=== PATIENT | female | born 1980 | race Caucasian/White ===

== ENCOUNTER 2018-05-20 14:45 | Emergency (ER) | payer OTHER ==
[~2018-05-20] VITALS: Ht 170.2 cm; Wt 61.2 kg
[2018-05-20 15:27] VITALS: BP 113/74
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
[2018-05-20] MEDS ORDERED: NEOMY/BACITR/POLYMYXIN OINT PACKET. TP ONE (15:30)
[2018-05-20] MEDS ORDERED: GELATIN SPONGE SIZE 12-7MM SPONGE. TP ONE (15:30)
[2018-05-20] MEDS ORDERED: AMOX1TAB61 PO (15:37)
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
[2018-05-20] MEDS ORDERED: SURGICEL HEMOSTAT 2X14 EACH. TP ONE (16:00)
== END 2018-05-20 15:59 | disposition home or self-care (01) ==
LOC: ER 14:45
DX: S61.251A Open bite of left index finger without damage to nail, initial encounter (principal); Z88.0 Allergy status to penicillin; W50.3XXA Accidental bite by another person, initial encounter; Y93.89 Activity, other specified; Y99.8 Other external cause status; Y92.89 Other specified places as the place of occurrence of the external cause
CPT/HCPCS: 99283